=== PATIENT | female | born 1975 | race Caucasian/White ===

== ENCOUNTER 2022-08-01 08:32 | Inpatient (IN) | payer OTHER ==
[~2022-08-01] VITALS: Ht 167.6 cm; Wt 132.6 kg
[2022-08-01] MEDS ORDERED: ARIPIPRAZOLE2 M1 (10:07)
[2022-08-01] MEDS ORDERED: Ventolin/Prove6.7 GM (10:07)
[2022-08-01] MEDS ORDERED: HYDROXYZINE PAM25 MG (10:08)
[2022-08-01] MEDS ORDERED: EUTHYROX137 MC1 (10:08)
[2022-08-01] MEDS ORDERED: TRAZ150T57 (10:09)
[2022-08-01] MEDS ORDERED: ONDA4 PO (10:09)
[2022-08-01] MEDS ORDERED: ACET250 PO ×2 (10:09→11:15)
[2022-08-01] MEDS ORDERED: VERAPAMIL ER120 M1 PO ×2 (10:09→11:14)
[2022-08-01] MEDS ORDERED: METFORMIN HCL500 M3 PO (10:10)
[2022-08-01 10:34] LABS: Influenza A, PCR NEGATIVE (NEGATIVE); Influenza B, PCR NEGATIVE (NEGATIVE); Resp Syncytial Virus, PCR NEGATIVE (NEGATIVE); SARS-Cov-2 (COVID-19) PCR, MMC NEGATIVE (NEGATIVE)
[2022-08-01] MEDS ORDERED: METF500 PO (11:13)
[2022-08-01] MEDS ORDERED: VICTOZA 3-0.6 MG/0.2 SC (11:13)
[2022-08-01] MEDS ORDERED: METF500C PO (11:14)
[2022-08-01] MEDS ORDERED: TRAZ150T57 PO (11:15)
[2022-08-01] MEDS ORDERED: HYDPAM25 PO (11:15)
[2022-08-01] MEDS ORDERED: ABILIFY MYCITE2 M2 PO (11:15)
[2022-08-01] MEDS ORDERED: ONDA4ODT MM (11:16)
[2022-08-01] MEDS ORDERED: LEVSOD137 PO (11:16)
[2022-08-01] MEDS ORDERED: Prozac40 MG PO (11:16)
[2022-08-01] MEDS ORDERED: ALBU90OI INH (11:17)
[2022-08-01] MEDS ORDERED: BASAGLAR K100 UNIT/1 SC (11:17)
[2022-08-01] MEDS ORDERED: PREG300 PO (11:18)
[2022-08-01] MEDS ORDERED: ELET40TA PO (11:18)
--- NOTE | 2022-08-01 16:52 | NUR ---
REPORT RECIEVED FROM ER NURSE AT 1405. PT ARRIVED TO PCU AT 1420 VIA HOSPITAL BED AND ON 5L NC. PT ABLE TO TRANSFER SELF FROM ONE BED TO ANOTHER, TOLERATED FAIR. 02 SATS RANGING 88-92%HILE AT REST. PT REPORTS SOB WHILE AT REST. PT REPORTS A NONPRODUCTIVE COUGHUPON ARRIVAL. PT ALSO REPORTS N/V, NOTIFIED, ERINFRSYL ORDERED. NO REPORT OF CHEST PAIN/PRESSURE UPON ARRIVAL TO PCU. PT BP ELEVATED UPON ARRIVAL, Q30 BP'S. PT REPORTS HX OF ASTHMA, HYPOTHYROIDISM, ANXIETY, DM2.
--- NOTE | 2022-08-01 17:20 | NUR ---
UPDATE BLOOD SUGAR CHECKED, RESULTS OF 466. DR NOTIFIED. HUMALOG ORDERED BY TO BE SWITCHED TO HIGH SLIDING SCALE AND ORDERED THIS RN TO GIVE THE 2100 DOSE OF LONG ACTING NOW.
--- NOTE | 2022-08-01 18:24 | NUR ---
SHIFT SUMMARY PT A/OX4 AND COOPERATIVE OF CARE. PT O2 SATS RANGING 85-92%, O2 INCREASED TO 12L HFNC. OTHER VSS SINCE ARRIVAL TO UNIT. NO REPORT OF CHEST PAIN/PRESSURE SINCE ARRIVAL TO UNIT. PT REPORTS SOB AT REST UPON ARRIVAL, THE SOB AT REST NOT REPORT TOWARDS END OF SHIFT. PT BLOOD SUGAR ELEVATED, SEE PRESVIOUS NOTES.
--- NOTE | 2022-08-02 06:44 | NUR ---
CONE OPERATOR SUMMARY ASSUMED CARE OF THE PATIENT AT 1900. SHE APPEARED TO BE HAVING DIFFICULTY WITH BREATHING AND SATURATIONS WERE IN THE MID 80S ON 12L BY HNC. PT PLACED ON NRB AT 15 LPM WHILE RT CAME TO ASSESS HER. PT WAS PLACED ON AIRVO AT 55L AT 100% FIO2 TO MAINTAIN SATURATION >90% AND SHE HAS BEEN TITRATED THROUGHOUT THE NIGHT. SHE IS CURRENTLY SITTING UP IN BED SATTING 96% ON 55L AT 75% FIO2. PT MEDICATED FOR ANXIETY THIS MORNING. SHE IS RECEIVING IV STEROIDS WELL. HER CBGS HAVE BEEN ELEVATED SO PT WAS GIVEN SHORT ACTING 5 UNITS OF COVERAGE. PT REPORTS FEELING IMPROVED THIS MORNING. SHE IS ABLE TO AMBULATE TO THE RESTROOM WHILE ON THE AIRVO WITHOUT SOB AND HER SATURATIONS RECOVER WITH REST. PT WITH DRY HACKING COUGH. SHE APPEARS TO SATURATE BETTER WHEN SLEEPING ON EITHER SIDE AND HAS LOWER SATURATION WHEN SLEEPING ON HER BACK. THIS RN RECOMMENDED PT TALKING TO PRIMARY ABOUT POSSIBLE CPAP EVALUATION. PT HAS REMAINED SINUS TACH IN THE 100S AND 110S THROUGHOUT THE SHIFT.
--- NOTE | 2022-08-02 07:35 | NUR ---
BLOOD SUGAR UPDATE: NOTIFIED PROVIDER RE: POC GLUCOSE LEVEL VIA TELEPHONE. PROVIDER GIVES ORDER TO HOLD SOLUMEDROL FOR TODAY, ADD ONE TIME DOSE OF GLARGINE AND ADJUSTED HUMALOG DOSE. ORDER FOR GLARGINE PLACED.
--- NOTE | 2022-08-02 18:19 | NUR ---
SHIFT SUMMARY: PT A&Ox4, ANSWERS QUESTIONS APPROPRIATELY, COOPERATIVE W/CARE, MILDLY ANXIOUS W/PRN MEDICATIONS IN PLACE. O2 THERAPY CONTINUES VIA HHNC 40L 60%, O2 SATS >90%, OCCASIONAL CONGESTED COUGH. SIN TACH ON MONITOR W/RATE 100-110s, PT DENIES CP. POC GLUCOSE CHECKS CONTINUE ELEVATED, PROVIDER NOTIFIED AFTER EACH POC TEST W/UPDATE ON RESULTS, NEW ORDERS RECEIVED AND PLACED. PT TRANSFERS SELF TO/FROM [facility] [place]FFICULTY AND MINIMAL O2 DESATURATION. AT THIS TIME, PT RESTING QUIETLY IN BED W/CALL LIGHT IN REACH. WILL CONTINUE TO MONITOR AND TREAT ACCORDINGLY UNTIL CHANGE OF SHIFT.
[2022-08-02 21:37] LABS: BASOPHILS ABSOLUTE AUTO 0.01 K/mm3 (0.00-0.23); BASOPHILS PERCENT AUTO 0 % (0-2); EOSINOPHILS PERCENT AUTO 0 % (0-6); Hematocrit 39.3 % (33.0-51.0); IMMATURE GRAN ABSOLUTE AUTO 0.05 K/mm3 (0.00-0.10); IMMATURE GRAN PERCENT AUTO 0 % (0-1); LYMPHOCYTES ABSOLUTE AUTO 0.41 K/mm3 (0.84-5.20); LYMPHOCYTES PERCENT AUTO 4 % (21-46); MONOCYTES ABSOLUTE AUTO 0.24 K/mm3 (0.16-1.47); MONOCYTES PERCENT AUTO 2 % (4-13); Mean Corpuscular HGB 27.4 pg (26.0-34.0); Mean Corpuscular HGB Conc 33.1 g/dL (31.5-36.5); Mean Corpuscular Volume 83 fL (80-100); Mean Platelet Volume 10.6 fL (9.1-12.4); NEUTROPHILS ABSOLUTE AUTO 10.78 K/mm3 (1.96-9.15); NEUTROPHILS PERCENT AUTO 94 % (41-73); Platelet Count 218 K/mm3 (150-400); RDW Coefficient Variation 16.7 % (11.7-14.2); RDW Standard Deviation 50.4 fL (35.1-46.3); Red Blood Cell Count 4.74 M/mm3 (3.80-5.20); White Blood Cell Count 11.49 K/mm3 (4.00-11.30)
[2022-08-02 22:05] LABS: Albumin, Blood 3.8 g/dL (3.4-5.0); Bilirubin, Total 0.4 mg/dL (0.1-1.0); Bun/Creatinine Ratio 28.8 (12.0-20.0); Calcium, Blood 9.4 mg/dL (8.5-10.1); Creatinine, Blood 0.63 mg/dL (0.40-1.00); Globulin, Blood 3.9 g/dL (2.2-4.0); Potassium, Blood 4.5 mmol/L (3.5-5.5); Total Protein, Blood 7.7 g/dL (6.4-8.2)
--- NOTE | 2022-08-02 22:30 | NUR ---
PHYSICIAN NOTIFIED NOTIFIED OF CRITICAL VALUE. ORDERS TO GIVE 15 UNITS OF HUMALOG AND CHECK BLOOD SUGARS Q 1 HRS. WILL CONT TO MONITOR.
--- NOTE | 2022-08-02 22:31 | NUR ---
PATIENT AWAKE WATCHING TV WITH AIRVO 40L FIO2 60% IN PLACE. USING BSC INDEPENDENTLY WITH SLIGHT SOB RECOVERING QUICKLY. BLOOD GLUCOSE 683 WITH LAB DRAW. SEE NEW ORDERS PER DOCTOR CINDY AFTER BEING CALLED BY TREVA DRIVER RN. PLAN TO MONITOR GLUCOSE Q1HR T/O NIGHT.
[2022-08-03 00:07] LABS: Glucose, Blood 537 mg/dL (70-99)
--- NOTE | 2022-08-03 00:26 | NUR ---
DOCTOR CINDY NOTIFIED OF GLUCOSE 537 AND THAT HS SOLU-MEDROL GIVEN. WILL GIVE HUMALOG 15 UNITS AND RECHECK GLUCOSE 1 HR AFTER INJECTION.
--- NOTE | 2022-08-03 02:43 | NUR ---
PATIENTS GLUCOSE CONTINUES TO DROP AT A NICE STEADY RATE. DOCTOR CINDY GIVEN UPDATE. PLAN TO NOT COVER THIS RESULT AND RECHECK GLUCOSE AT 0300 AND ASSESS IF SHE CONTINUES TO DROP. LONG ACTING INSULIN WAS ALSO GIVEN TONIGHT SEE EMAR. PATIENT RESTING QUIETLY WITH NO C/O NAUSEA OR SIGNS OF HYPERGLYCEMIA
[2022-08-03 05:28] LABS: BASOPHILS ABSOLUTE AUTO 0.01 K/mm3 (0.00-0.23); BASOPHILS PERCENT AUTO 0 % (0-2); EOSINOPHILS PERCENT AUTO 0 % (0-6); Hematocrit 42.2 % (33.0-51.0); Hemoglobin 13.7 g/dL (11.5-16.0); IMMATURE GRAN ABSOLUTE AUTO 0.05 K/mm3 (0.00-0.10); IMMATURE GRAN PERCENT AUTO 0 % (0-1); LYMPHOCYTES ABSOLUTE AUTO 0.73 K/mm3 (0.84-5.20); LYMPHOCYTES PERCENT AUTO 6 % (21-46); MONOCYTES ABSOLUTE AUTO 0.35 K/mm3 (0.16-1.47); MONOCYTES PERCENT AUTO 3 % (4-13); Mean Corpuscular HGB 26.6 pg (26.0-34.0); Mean Corpuscular HGB Conc 32.5 g/dL (31.5-36.5); Mean Corpuscular Volume 82 fL (80-100); Mean Platelet Volume 10.2 fL (9.1-12.4); NEUTROPHILS PERCENT AUTO 91 % (41-73); Platelet Count 235 K/mm3 (150-400); RDW Coefficient Variation 16.7 % (11.7-14.2); Red Blood Cell Count 5.16 M/mm3 (3.80-5.20); White Blood Cell Count 12.74 K/mm3 (4.00-11.30)
--- NOTE | 2022-08-03 05:40 | NUR ---
SUMMARY PATIENT SLEEPING OFF AND ON T/O NIGHT. FREQUENT BLOOD SUGAR CHECKS WITH COVERAGE DUE TO HYPERGLYCEMIA, PLAN TO HAVE Q4HR CHECKS WITH HIGH SLIDING SCALE WHILE ON SOLU-MEDROL. PATIENT REMAINS ON AIRVO 40L FIO2 60% SOB WITH ACTIVITY WITH BIOX 88-90% DURING ACTIVITY RECOVERING QUICKLY AT REST. BIOX 95% AT REST. USING BSC WITHOUT DIFFICULTY.
[2022-08-03 05:44] LABS: Bun/Creatinine Ratio 26.6 (12.0-20.0); Calcium, Blood 9.5 mg/dL (8.5-10.1); Creatinine, Blood 0.64 mg/dL (0.40-1.00); Potassium, Blood 4.7 mmol/L (3.5-5.5)
[2022-08-03 12:21] LABS: Glucose, Blood 555 mg/dL (70-99)
--- NOTE | 2022-08-03 12:34 | NUR ---
UPDATE NOTIFIED PHYSICIAN OF CBG BEING 555, INSTRUCTIONS TO USE SLIDING SCALE INSULIN DOSING. MD PLACING NEW ORDERS.
--- NOTE | 2022-08-03 18:06 | NUR ---
SHIFT SUMMARY PT A&Ox4, CALLS AND COMMUNICATES NEEDS APPROPRIATELY. VSS, BP STABLE, SR-ST 80-100's, DENIES CP/PRESSURE. SpO2> 92% ON 40L/60% Fi02 VIA AIRVO, DENIES SOB. PT IND TO BSC, CONTIENT OF URINE AND BOWEL. SEE PREVIOUS NOTES REGARDING DISCUSSIONS ABOUT CBG's WITH PHYSICIAN. NO ACUTE EVENTS THIS SHIFT, WILL REPORT TO DAY SHIFT RN.
[2022-08-03 21:27] LABS: Glucose, Blood 561 mg/dL (70-99)
--- NOTE | 2022-08-04 06:19 | NUR ---
PROCESSING INSPECTOR SUMMARY ASSUMED CARE OF PT AT 1900. SHE IS ALERT AND ORIENTED X4, COOPERATIVE WITH CARE. PT PHYSICALLY APPEARS IMPROVED AND DECREASED WORK OF BREATHING. SHE IS STILL ON AIRVO AT 40 LPM WITH 50% FIO2. SATURATIONS REMAINED >92% PT SLEPT ON HER SIDE. PT HAS BEEN TITRATED DOWN THROUGHOUT THE NIGHT BASED ON SATURATIONS. SHE REPORTS LESS ANXIETY THIS SHIFT, NEEDING NONE OF THE PRN HYDROXYZINE. PT HAS BEEN SINUS TO SINUS TACH ON THE TELE, RANGING BETWEEN THE 80S AT REST AND 110S WITH ACTIVITY. SHE DENIES ANY PAIN. CBG WAS ELEVATED THROUGHOUT THE SHIFT, PT RECEIVING MULTIPLE UNITS OF COVERAGE BUT WITH IMPROVED CBG THIS MORNING IN THE LOW 300S. STEROIDS WERE DC'D YESTERDAY.
--- NOTE | 2022-08-04 08:05 | NUR ---
AM ASSESSMENT: Pt resting in bed. A/Ox4. LS with exp wheezing. SOB with any exertion. On AIRVO at 40L 55%. BIox 92%. BT positive. Pt states that she has not had a BM for a couple days, which is normal for her. Pulses palp. HR reg. Denies pain. Call light in reach. Will monitor throughout shift.
--- NOTE | 2022-08-04 17:47 | NUR ---
SHIFT SUMMARY: Pt sitting up in bed eating dinner. States that she is feeling better. Pt was able to be titrated to 8-9L HFNC. Biox 93-94%. Was able to get up and shower today with min assist. Tolerated well. VSS throughout shift. CBG were elevated throughout shift. Medicated with insulin per orders. Will continue to treat. Stable at end of shift. Will report to night RN.
--- NOTE | 2022-08-04 19:00 | NUR ---
ASSUMPTION OF CARE NOTE PT IS A/Ox4 AND IS COOPERATIVE WITH CARE PROVIDED BY MEMBERS OF STAFF. MAINTAINING SPO2 >905 ON 8L VIA NC WITH NO SOB OR DYSPNEA REPORTED WHILE AT REST. PT REPORTS SOB WITH EXERTION, BUT RECOVERS QUICKLY. CARDIAC CABRERA, HR HAS BEEN SR/ST WITH HR RANGING IN THE 80-100'S. NO CP OR PRESSURE REPORTED BY THE PT AT THIS TIME. SBP'S A LITTLE SOFT BUT STABLE AND MAP >65. BS PRESENT AND PT IS ABLE TO VOID INDEPENDENTLY. WILL CONTINUE TO LOOK THROUGH PT'S CHART AND MONITOR THE PT. BEVERLY PEREZ AT THIS TIME
--- NOTE | 2022-08-05 06:44 | NUR ---
SHIFT SUMMARY NO ACUTE CHANGES FROM TRANSFER OF CARE NOTE. PT SLEP T/O MOST OF THE NIGHT. NADN, VSS STABLE. SEE TRANSFER OF CARE NOTE.
--- NOTE | 2022-08-05 09:26 | NUR ---
AM NOTE: PATIENT ALERT AND ORIENTED X4. NEURO WNL. WEARING GLASSES. UP TO BSC WITH SBA TO HELP MANAGE CORDS. ON 7L HIGH FLOW NASAL CANNULA SATING MID 90'S. LUNGS OVERALL SOUNDING DIMINISHED. OCCASIONAL NONPRODUCTIVE COUGH. SOB ON EXERCTION. TELE SHOWING SR-ST WITH HR 90-110'S. DENIES CHEST PAIN/PRESSURE/PALPITATIONS. BP STABLE. NO SIGNS OF EDEMA. PPP. DENIES ABDOMINAL PAIN/NAUSEA. WATING WNL. UP TO BSC TO VOID. DENIES OVERALL PAIN. SKIN C/D/I. CALL LIGHT IN REACH. ACHS BLOOD SUGAR CHECKS.
--- NOTE | 2022-08-05 17:58 | NUR ---
SHIFT SUMMARY: BLOOD SUGARS REMAIN ELEVATED BUT IMPROVING. PATIENT EDUCATED ON LOW SUGAR ITEMS AND NOT DRINKING SODA. REMAINS ON 7L HIGH FLOW NASAL CANNULA SATING MID 90'S. DESATS WITH MOVEMENT. USING BSC TO VOID. PRN BREATHING TREATMENTS. INTERMIT WHEEZING. TELE REMAINS SR-ST. VITALS SIGNS STABLE THROUGHOUT SHIFT. EATING WNL. DENIES PAINS THROUGHOUT SHIFT. SPOUSE AT BEDSIDE.
--- NOTE | 2022-08-06 05:04 | NUR ---
SHIFT SUMMARY PT A&Ox4, CALLS AND COMMUNICATES NEEDS APPROPRIATELY. VSS, BP STABLE, SR-ST 70-100's, DENIES CP/PRESSURE. SpO2> 92% 7L VIA NC, DENIES SOB. CBG IMPROVING. PT CONTINENT OF URINE AND BOWEL, IND TO BSC. NO ACUTE EVENTS THIS SHIFT, WILL REPORT TO ON COMING RN.
--- NOTE | 2022-08-06 09:16 | NUR ---
AM NOTE: PATIENT ALERT AND ORIENTED X4. NEURO WNL. COMPLAINS OF RIGHT WRIST PAIN THIS AM SAYING "SOMETIMES MY JOINTS GET INFLAMMED". REPORTS 7/10 PAIN. TYLENOL GIVEN WELL ICE PACK. TELE READING SR-ST WITH HR 90-110'S. DENIES CHEST PAIN/PRESSURE. BP STABLE. PPP. WEARING 6L HIGH FLOW NASAL CANNULA SATING LOW 90'S. OCCASIONAL MOIST SOUNDING COUGH. LUNGS SOUNDING DIM WITH EXPIRATORY WHEEZE. PRN BREATHING TREATMENTS. DENIES ABDOMINAL PAIN/NAUSEA. EATING WNL. LOW SUGAR OPTIONS ENCOURAGED FOR BLOOD SUGAR CONTROL. USING BSC IND Q4 BLOOD SUGAR CHECKS. CALL LIGHT IN REACH.
--- NOTE | 2022-08-06 17:09 | NUR ---
SHIFT SUMMARY: NO ACUTE CHANGES. SEE PREVIOUS NOTES FOR UPDATES. PATIENT ON 4-5L NASAL CANNULA SATING MID 90'S. DESATS WITH SOME MOVEMENT. PRN BREATHING TREATMENTS. NO CHANGES TO TELE. VITAL SIGNS REMAINS STABLE. SHOWER TODAY. USING BSC. BLOOD SUGARS IMPROVED THROUGHOUT SHIFT. WILL REPORT OFF TO ONCOMING RN.
[2022-08-07 03:49] LABS: BASOPHILS ABSOLUTE AUTO 0.01 K/mm3 (0.00-0.23); BASOPHILS PERCENT AUTO 0 % (0-2); EOSINOPHILS ABSOLUTE AUTO 0.23 K/mm3 (0.00-0.68); EOSINOPHILS PERCENT AUTO 4 % (0-6); Hematocrit 38.7 % (33.0-51.0); Hemoglobin 12.7 g/dL (11.5-16.0); IMMATURE GRAN ABSOLUTE AUTO 0.02 K/mm3 (0.00-0.10); IMMATURE GRAN PERCENT AUTO 0 % (0-1); LYMPHOCYTES ABSOLUTE AUTO 1.49 K/mm3 (0.84-5.20); LYMPHOCYTES PERCENT AUTO 27 % (21-46); MONOCYTES ABSOLUTE AUTO 0.26 K/mm3 (0.16-1.47); MONOCYTES PERCENT AUTO 5 % (4-13); Mean Corpuscular HGB 26.9 pg (26.0-34.0); Mean Corpuscular HGB Conc 32.8 g/dL (31.5-36.5); Mean Corpuscular Volume 82 fL (80-100); Mean Platelet Volume 10.2 fL (9.1-12.4); NEUTROPHILS ABSOLUTE AUTO 3.51 K/mm3 (1.96-9.15); NEUTROPHILS PERCENT AUTO 64 % (41-73); Platelet Count 202 K/mm3 (150-400); RDW Coefficient Variation 15.8 % (11.7-14.2); RDW Standard Deviation 47.5 fL (35.1-46.3); Red Blood Cell Count 4.72 M/mm3 (3.80-5.20); White Blood Cell Count 5.52 K/mm3 (4.00-11.30)
[2022-08-07 04:09] LABS: Bun/Creatinine Ratio 26.9 (12.0-20.0); Calcium, Blood 8.9 mg/dL (8.5-10.1); Creatinine, Blood 0.71 mg/dL (0.40-1.00); Potassium, Blood 4.2 mmol/L (3.5-5.5)
--- NOTE | 2022-08-07 05:00 | NUR ---
SHIFT SUMMARY PT A&Ox4, CALLS AND COMMUNICATES NEEDS APPROPRIATELY. VSS, BP STABLE, SR-ST 90-100's, DENIES CP/PRESSURE. SpO2> 92% ON 5-6L VIA NC, REPORTS MILD SOB WITH ACTIVITY. PT CONTINENT OF URINE, NO BM THIS SHIFT. PT IND TO BSC. CBG IMPROVING. NO ACUTE EVENTS THIS SHIFT, WILL REPORT TO ON COMING RN.
--- NOTE | 2022-08-07 11:05 | NUR ---
CARE ASSUMPTION THIS RN ASSUMED CARE AT 0700 FROM [facility]. VSS.SPO2 >90% ON 4L NC. SR-ST 90-100S. NEURO IS INTACT, ALERT AND ORIENTED X4. PERRLA. PATIENT REPORTS NO PAIN. NO CHEST PAIN OR PRESSURE. PATIENT REPORTS SHORTNESS OF BREATH WITH ACTIVITY. CLEAR AND DIM LUNG SOUNDS.PATIENT HAS A CONGESTED COUGH. ABD IS ACTIVE NONTENDER. PATIENT SKIN IS CLEAN DRY AND INTACT. SEE SHIFT ASSESSMENT FOR FURTHER DETIALS. PATIENT IS INDEPDENT IN THE ROOM AND CALLS FOR ASSISTANCE WHEN NEEDED. PATIENT PERFORMS ADLS INDEPDENTLY. PLAN OF CARE IS UP TO DATE. CALL LIGHT WITHIN REACH. WILL CONITNUE TO MONITOR AND PROVIDE CARE.
[2022-08-07] MEDS ORDERED: Flonase 0.05% N16 GM (13:13)
[2022-08-07] MEDS ORDERED: Mucus Relief400 MG PO (13:14)
[2022-08-07] MEDS ORDERED: IPRAT-ALBUT 0.5-3 ML INH (13:15)
[2022-08-07] MEDS ORDERED: SYMBICORT 160-4.6 GM INH (13:16)
--- NOTE | 2022-08-07 16:07 | NUR ---
DISCHARGE THIS RN WENT OVER DISCHARGE PACKET. THIS RN INFORMED THE PATIENT OF WHAT PHARMACY PATIENTS NEW MEDICATIONS WENT TO. THIS RN HAD THE PATIENT VERBALIZE UNDERSTANDING OF NEW MEDICATIONS AND FOLLOW UP APPOINTMENTS. PATIENT LEFT WITH ALL BELONGINGS. PATIENT LEFT IN NO DISTRESS VIA WHEELCHAIR.
== END 2022-08-07 16:18 | disposition home or self-care (01) | DRG 189 ==
LOC: ER 08:32 → PCU 08:33 → ERHOLD 08:33 → PCU 10:31
PROVIDERS: Emergency Medicine; Family Medicine; Internal Medicine; ADMIT Internal Medicine
PROC: 3E02340 Introduction of Influenza Vaccine into Muscle, Percutaneous Approach (ICD-10-PCS; principal; 2022-08-01)
PROC: 5A0945A Assistance with Respiratory Ventilation, 24-96 Consecutive Hours, High Flow/Velocity Cannula (ICD-10-PCS; 2022-08-02)
DX: J96.01 Acute respiratory failure with hypoxia (principal); J45.901 Unspecified asthma with (acute) exacerbation; F32.A Depression, unspecified; F41.9 Anxiety disorder, unspecified; F12.10 Cannabis abuse, uncomplicated; I10 Essential (primary) hypertension; E11.65 Type 2 diabetes mellitus with hyperglycemia; T38.0X5A Adverse effect of glucocorticoids and synthetic analogues, initial encounter; Z20.822 Contact with and (suspected) exposure to COVID-19; Z79.4 Long term (current) use of insulin; Z23 Encounter for immunization; Z79.899 Other long term (current) drug therapy; Z79.51 Long term (current) use of inhaled steroids; Z79.84 Long term (current) use of oral hypoglycemic drugs
CPT/HCPCS: 0241U; 36415; 71045; 80048; 80053; 82947; 85025; 90686; 93005; 93010; 94640; 94644; 94664; 94761; 94762; 96365; 96372; 96375; 96376; 99285-25; A9270; G0008; G0378; J1650; J1815; J2405; J2765; J2930; J3475